=== PATIENT | male | born 1965 | race Caucasian/White ===

== ENCOUNTER → 2020-07-06 | Outpatient (CLI) | payer BC ==
--- NOTE | 2020-07-06 08:18 | CT ---
EXAMINATION TYPE: CT soft tissue neck w con DATE OF EXAM: 07/06/2020 COMPARISON: The heart is is is and is HISTORY: Cervical Lymphadenopathy CT DLP: 683.5 mGycm CONTRAST: CT scan of the neck is performed with IV Contrast, patient injected with 100 mL of Isovue 300. Contrast enhanced CT of the neck was performed from the skull base through the lung apices. Markers are placed posterior-lateral left neck. At the sites of clinical concern there is asymmetric fat felt to reflect lipoma measuring 1.6 x 1.4 cm. No solid nodule is identified. No evidence for ad enopathy in this region. AIRWAY: The supraglottic, glottic, and subglottic portions of the airway appear patent and free of mass. SALIVARY GLANDS: The submandibular and parotid glands are free of mass or inflammatory process. THYROID GLAND: No nodules or masses seen. LYMPH NODES: No adenopathy seen greater than 1cm. LUNG APICES: No nodule or mass is seen. OTHER: Vascular structures are patent. No significant degenerative change of the cervical spine. N o abscess seen. IMPRESSION: Markers are placed posterior-lateral left neck. At the sites of clinical concern there is asymmetric fat felt to reflect lipoma measuring 1.6 x 1.4 cm. No solid nodule is identified.
--- NOTE | 2020-07-06 09:19 | XR ---
EXAMINATION TYPE: XR chest 2V DATE OF EXAM: 07/06/2020 COMPARISON: 02/27/2013 HISTORY: 55-year-old female with cough TECHNIQUE: Frontal and lateral views FINDINGS: The cardiomediastinal silhouette, aorta, and pulmonary vasculature are within normal limits. Lungs an d pleural spaces are clear. IMPRESSION: No acute cardiopulmonary process.
== END | disposition home or self-care (01) ==
LOC: RADCTMAIN 07:28
PROVIDERS: ATTEND Internal Medicine
DX: R59.0 Localized enlarged lymph nodes (principal); R05 Cough
CPT/HCPCS: 71046; 70491; Q9967

== ENCOUNTER → 2022-02-14 | Outpatient (CLI) | payer BC ==
--- NOTE | 2022-02-14 21:49 | CT ---
EXAMINATION TYPE: CT abdomen w con DATE OF EXAM: 02/14/2022 COMPARISON: Prior CT 2010. HISTORY: Right side adrenal mass CT DLP: 1559.2 mGycm Automated exposure control for dose reduction was used. TECHNIQUE: Helical acquisition of images was performed from the lung bases through the top of iliac crest to include entire abdomen. CONTRAST: Performed without Oral Contrast and with IV Contrast, patient injected with 100cc mL of Isovue 300. FINDINGS: LUNG BASES: No significant abnormality is appreciated. LIVER/GB: Visualized liver remains heterogeneously hypodense suggesting diffuse fatty infiltration. PANCREAS: No significant abnormality is seen. SPLEEN: No significant abnormality is seen. ADRENALS: New right adrenal mass from 2011 measuring 2.7 x 1.9 cm. Hounsfield units are near [address] images and 23 on 2 minutes later delayed images. KIDNEYS: No significant abnormality is seen. BOWEL: Normal appearing appendix. LYMPH NODES: No significant abnormality is seen. OSSEOUS STRUCTURES: Probable subacute fractures of the posterior right ninth and 10th ribs with call us formation. Age-indeterminate possible acute fracture of the posterior right 11th rib without callu s formation axial image 21. Slight scoliotic curvature centered at L2-L3 level. Moderate to severe di sc space narrowing and spurring L2-L3 level. [id number] disc space narrowing with vacuum disc phenomenon at L5-S1 level. FREE AIR: No free air is visualized. OTHER: None. IMPRESSION: There is new 2.7 cm right adrenal mass from 2011 CT. Suboptimal study in adrenal protocol without and with contrast imaging not performed. Malignant etiology cannot be excluded and needs to be strongly considered given new finding. Further investigation may be warranted.
== END | disposition home or self-care (01) ==
LOC: RADCTMAIN 18:12
PROVIDERS: ATTEND Student in an Organized Health Care Education/Training Program
DX: D35.01 Benign neoplasm of right adrenal gland (principal)
CPT/HCPCS: 74160; Q9967